=== PATIENT | female | born 1930 | race Caucasian/White ===

== ENCOUNTER → 2016-11-12 | Outpatient (CLI) | payer MEDICARE ==
[2014-12-07 00:05] VITALS: BP 196/96
[2016-11-12 12:16] LABS: BASO # 0.1 x10^3/uL (0.0-0.2); BASO % 1 % (0-3); EOS % 1 % (0-3); HEMATOCRIT 40.4 % (36.0-47.0); HEMOGLOBIN 13.4 g/dL (12.0-15.5); LYMPH # 1.5 x10^3/uL (1.0-4.8); LYMPH % 14 % (24-48); MEAN CORPUSCULAR HEMOGLOBIN 30 pg (25-35); MEAN CORPUSCULAR HGB CONC 33 g/dL (31-37); MEAN CORPUSCULAR VOLUME 91 fL (79-100); MONO % 7 % (0-9); NEUT % 78 % (31-73); PLATELET COUNT 254 x10^3/uL (140-400); RED BLOOD COUNT 4.45 x10^6/uL (3.50-5.40); RED CELL DISTRIBUTION WIDTH 14.4 % (11.5-14.5); WHITE BLOOD COUNT 10.4 x10^3/uL (4.0-11.0)
[2016-11-12 12:28] LABS: BILIRUBIN,URINE NEGATIVE (NEG); GLUCOSE,URINE NEGATIVE (NEG); NITRITE,URINE NEGATIVE (NEG); PH,URINE 5.5; PROTEIN,URINE NEGATIVE (NEG-TRACE); UROBILINOGEN,URINE 0.2 mg/dL (0.2 mg/dL)
[2016-11-12 12:31] LABS: ALBUMIN 3.7 g/dL (3.4-5.0); ALBUMIN/GLOBULIN RATIO 0.9 (1.0-1.7); CALCIUM 9.3 mg/dL (8.5-10.1); GFR 52.4; MAGNESIUM 1.9 mg/dL (1.8-2.4); PHOSPHORUS 3.8 mg/dL (2.6-4.7); POTASSIUM 3.5 mmol/L (3.5-5.1); TOTAL BILIRUBIN 0.4 mg/dL (0.2-1.0); TOTAL PROTEIN 7.9 g/dL (6.4-8.2); URIC ACID 7.3 mg/dL (2.6-6.0)
[2016-11-12 12:50] LABS: BACTERIA,URINE FEW /HPF (0-FEW); SQUAMOUS EPITHELIAL CELL,UR FEW /LPF
[2016-11-12 18:14] LABS: UR PROTEIN RD 24.4 mg/dL (Not Estab.)
[2016-11-13 17:20] LABS: VITAMIN D25(OH)TOTAL 33.6 ng/mL (30.0-100.0)
== END | disposition home or self-care (01) ==
LOC: LAB 11:43
PROVIDERS: ATTEND Internal Medicine Nephrology
DX: D35.02 Benign neoplasm of left adrenal gland (principal); I10 Essential (primary) hypertension; N28.1 Cyst of kidney, acquired; Z68.26 Body mass index [BMI] 26.0-26.9, adult
CPT/HCPCS: 36415; 80053; 81001; 82306; 82570; 83735; 84100; 84156; 84443; 84550; 85027; 87086

== ENCOUNTER → 2016-11-19 | Day surgery (SDC) | payer MEDICARE ==
[~2016-11-19] MED LIST: ALPR0.5T6 PO; ASPI-482 PO; CHOL200074 PO; HYDR25SU18 RC; HYDR25TA9 PO; HYDR28.311 RC; IV RINGERS,LACTATED 1000ML 1,000 ML IV SCH; LIDOCAINE 2% PF Vial for OR 5 ML VIAL. ONE; LISI10TA2 PO; PROPOFOL 40 ML IV ONE
[2016-11-19 09:53] VITALS: BP 129/76
--- NOTE | 2016-11-22 13:53 | PATHOLOGY ---
PATHOLOGY REPORT * * * * * * * * FINAL DIAGNOSIS: Esophageal biopsy, distal esophagus: - Segments of hyperplastic squamous esophageal mucosa, consistent with reflux esophagitis. COMMENT: Sections of the distal esophageal biopsy reveal segments of hyperplastic squamous esophageal mucosa showing focal chronic inflammation. The findings are consistent with reflux esophagitis. There is no evidence of Dias's, dysplasia or malignancy. (JPM:mml; 11/22/2016) REPORT ELECTRONICALLY SIGNED BY: Ignacio Esposito M.D. DATE/TIME: 11/22/2016 13:52 * * * * * * * * GROSS PATHOLOGY: Received in formalin labeled "Dorothy Altamirano, distal esophagus," are multiple segments of dsouza soft tissue measuring from 0.1 up to 0.3 cm in maximum dimension. The specimen is submitted entirely in cassette A1. (JPM; 11/19/16) INITIAL CPT CODE(S): A; 68808 Professional services performed [place] [address] Technical services performed by [facility] at [address] [place] [address]. SPECIMEN(S) RECEIVED: A.Distal esophagus biopsy CLINICAL HISTORY: Reflux PATIENT: DOROTHY ALTAMIRANO /AGE: 11 1930 (Age: 86) PATIENT #: [id number] ALT CASE #: SPECIMEN COLLECTION DATE: 11/19/2016 SPECIMEN RECEIVED DATE: 11/19/2016 [facility] - [address] [place] [address] - PHONE: [phone] * * * END OF REPORT * * *
== END | disposition home or self-care (01) ==
LOC: ENDOS 07:49
PROVIDERS: ATTEND Internal Medicine Gastroenterology
DX: K64.1 Second degree hemorrhoids (principal); K57.30 Diverticulosis of large intestine without perforation or abscess without bleeding; K21.0 Gastro-esophageal reflux disease with esophagitis; K44.9 Diaphragmatic hernia without obstruction or gangrene; K29.50 Unspecified chronic gastritis without bleeding; I10 Essential (primary) hypertension; K21.9 Gastro-esophageal reflux disease without esophagitis; M19.90 Unspecified osteoarthritis, unspecified site; F41.9 Anxiety disorder, unspecified; Z87.39 Personal history of other diseases of the musculoskeletal system and connective tissue
CPT/HCPCS: 43239; 45378; 88305; J2001; J2704

== ENCOUNTER → 2017-07-22 | Outpatient (CLI) | payer MEDICARE | END | disposition home or self-care (01) | LOC: KCIC MAMMO 12:07 | DX: Z12.31 Encounter for screening mammogram for malignant neoplasm of breast (principal) | CPT/HCPCS: 77063; 77067 ==

== ENCOUNTER → 2017-11-21 | Outpatient (CLI) | payer MEDICARE | END | disposition home or self-care (01) | LOC: KCIC 11:03 | DX: M47.896 Other spondylosis, lumbar region (principal); M48.061 Spinal stenosis, lumbar region without neurogenic claudication; M51.36 Other intervertebral disc degeneration, lumbar region; M12.88 Other specific arthropathies, not elsewhere classified, other specified site; I10 Essential (primary) hypertension; K21.0 Gastro-esophageal reflux disease with esophagitis | CPT/HCPCS: 72100 ==

== ENCOUNTER → 2017-11-28 | Outpatient (CLI) | payer MEDICARE | END | disposition home or self-care (01) | LOC: KCIC MRI 11:22 | DX: M47.896 Other spondylosis, lumbar region (principal); M48.061 Spinal stenosis, lumbar region without neurogenic claudication; M25.78 Osteophyte, vertebrae; M71.38 Other bursal cyst, other site; N28.1 Cyst of kidney, acquired; R53.1 Weakness | CPT/HCPCS: 72148 ==

== ENCOUNTER → 2018-01-05 | Outpatient (CLI) | payer MEDICARE ==
[2016-11-19 09:53] VITALS: BP 129/76
[~2018-01-05] MED LIST changes: +ACET500T68 PO; +IOHEXOL 180 MG/ML 10 ML VIAL. ONE; -IV RINGERS,LACTATED 1000ML 1,000 ML IV SCH; +LIDOCAINE 2% PF 2ML VIAL. ONE; -LIDOCAINE 2% PF Vial for OR 5 ML VIAL. ONE; -PROPOFOL 40 ML IV ONE; +methylPREDNISolone ACETATE 40 MG/ML VIAL. ONE; +methylPREDNISolone ACETATE 80 MG/ML VIAL. ONE
--- NOTE | 2018-01-05 22:54 | PAIN ---
DATE OF SERVICE: 01/05/2018 INITIAL CONSULTATION FOR PAIN CLINIC CHIEF COMPLAINT: Low back, bilateral lower extremities, left greater than right. HISTORY OF PRESENT ILLNESS: This is an 87-year-old female who presents with history of pain for about 1 year, worse over the past several months, increasing in the low back, bilateral lower extremities with some numbness and decreased strength in the lower extremities with fatigability. The patient reports it is across the low back into the bilateral lower extremities, mostly in lateral anterior aspect of the thigh, lateral medial thigh, posterior gluteus and posterior thigh as well as the posterior calf. The patient reports it is throbbing, changes during the day, worse with standing, walking, changing positions, cramping and numbness as well as her main complaint in the legs. The patient reports it does not awaken her from sleep at night. It does not affect her bowel or bladder control but does affect her ability to walk. She is not using any assistive devices currently. She has been holding on to items and hand rails, etc. The patient reports no loss of motor function with significant fatigability with exercise and activity. The patient did have MRI scan of the lumbar spine dated 11/28/2017 showing significant degenerative changes throughout the lumbar spine, most notable at L4-L5 with several levels of canal and foraminal compromise at L3-L4, L4-L5 and L5-S1. L4-L5 showing severe canal stenosis of the lateral recess narrowing bilaterally. L5-S1 shows moderate bilateral foraminal narrowing. L3-L4 showing mild left and minimal right neural foraminal narrowing. The patient rates her disability rate from 0-10, 10 being the worst, is a 5 with family home responsibilities, 7 with recreation and social activity, 0 with self care and 0 with life support activities. The patient has had physical therapy about 2 years ago and still doing stretching and strengthening exercises on her own that she learned with this and reports it does not decrease the pain significantly but was helpful about 2 years ago initially for the same pain. PAST MEDICAL HISTORY: Significant for hypertension, arthritis, hearing loss, hemorrhoids, cyst on the kidney and osteoarthritis. PAST SURGICAL HISTORY: Previous surgeries include carpal tunnel release on the right, cataract extraction bilaterally and a total knee in 2003. CURRENT MEDICATIONS: Include lisinopril, vitamin D, hydrochlorothiazide, alprazolam and baby aspirin. ALLERGIES: The patient is allergic to CHOLESTEROL MEDICINE, she is unsure of the name. FAMILY HISTORY: Significant for heart disease and cancer. SOCIAL HISTORY: The patient does not drink alcohol, does not smoke, does not use any illegal, illicit or recreational drugs. She is retired and lives locally in [place], [place]. REVIEW OF SYSTEMS: The patient's review of systems is positive for those items mentioned in history of present illness. All systems were reviewed and otherwise negative. It is complete, full and well documented on the patient's chart. PHYSICAL EXAMINATION: VITAL SIGNS: Today, the patient's blood pressure 124/83, pulse 87, respirations 16, temperature 97.9 degrees Fahrenheit, height is 4 feet 11 inches and weight 131 pounds. GENERAL: The patient is awake, alert, oriented, appropriate and very pleasant demeanor. HEENT: Head shows normocephalic and atraumatic. Extraocular movements intact and symmetrical. Oral cavity: Mucous membranes moist and pink. Dentition is intact. NECK: Anterior throat supple without palpable lymphadenopathy noted. Swallow reflex is symmetrical. CHEST: Shows normal with inspection. Breath sounds are clear to auscultation bilaterally. HEART: Shows S1 and S2 clear. No murmurs auscultated. ABDOMEN: Soft, nontender and nondistended. No palpable organomegaly is noted. No rebound or guarding demonstrated. BACK: Shows spine grossly in the midline. Slight exaggeration of the thoracic kyphosis, normal appearing cervical lordotic curvature and some slight flattening of the lumbar lordotic curvature. The patient's back shows paraspinous musculature of the lumbar distribution symmetrical on inspection with palpation shows some moderate tenderness but only diffusely bilaterally. The patient has good rotational motion both laterally greater than 10 degrees, right and left as well as extension greater than 10 degrees, forward flexion 45 degrees without difficulty or tenderness. No tenderness over the sacrum or sacroiliac regions. EXTREMITIES: Lower extremities show deep tendon reflexes at 1+ in the patellar and tendo-calcaneus tendons. Motor exam is approximately 4 on a scale of 5 on the left and 5/5 on the right with dorsiflexion, extension. Peripheral pulses are 1+ posterior tibia. No peripheral edema is noted. Straight leg raising noted to be negative for reproduction of radicular symptoms bilaterally. Gaenslen's and Uriel's maneuvers are grossly negative bilaterally as well. The patient is able to stand on her toes, walks with a normal appearing gait, does not require any assistive devices to ambulate and does not appear to favor the right or left lower extremity significantly with a short walk in the office today. The patient's skin shows warm and dry, good turgor. No edema. No sores, rashes or bruising. IMPRESSION: 1. This is an 87-year-old female with approximately 1 year history of increasing pain, bilateral lower extremities and low back, slightly worse on the left than the right in a radicular fashion. 2. MRI scan of the lumbar spine as noted. 3. Hypertension. 4. Arthritis. 5. Hearing loss. PLAN: Options were discussed with the patient including conservative medical management, physical therapy, interventional techniques and she would like to pursue interventional techniques. We discussed a lumbar epidural steroid injection using description as well as anatomical models to describe the procedure. Risks were then discussed including, but not limited to bleeding, infection, possibility of epidural hematoma, subsequent neurological compromise, dural puncture, headaches, spinal cord and/or nerve damage, side effects of steroid medication and poor results regarding pain control. The patient understands and wished to proceed. The patient will return to the clinic in approximately 2 weeks for followup, was counseled as to return appointment, activity level and side effects to be aware of. DIAGNOSES: Lumbar radiculopathy with lumbar degenerative disk disease and lumbar spinal stenosis. PROCEDURE: Lumbar epidural steroid injection, translaminar approach at L4-L5 level using C-arm fluoroscopic guidance under sterile prep and drape using local anesthetic. MEDICATION INJECTED: A total of 120 mg Depo-Medrol plus 10 mL of preservative-free normal saline and 2 mL of Isovue for contrast. CONDITION AT DISCHARGE: Stable. The patient tolerated the procedure well and had no complications. RIRI STUBBS MD DR: VINI/rafaela JOB#: [id number] / [id number] CESAR Howe MD
== END | disposition home or self-care (01) ==
LOC: PNCL 10:10
PROVIDERS: ATTEND Anesthesiology
DX: M51.16 Intervertebral disc disorders with radiculopathy, lumbar region (principal); M48.061 Spinal stenosis, lumbar region without neurogenic claudication; I10 Essential (primary) hypertension; M19.90 Unspecified osteoarthritis, unspecified site; H91.90 Unspecified hearing loss, unspecified ear; Z98.42 Cataract extraction status, left eye; Z98.41 Cataract extraction status, right eye; Z96.1 Presence of intraocular lens; Z98.890 Other specified postprocedural states; Z79.82 Long term (current) use of aspirin; Z79.899 Other long term (current) drug therapy; Z88.8 Allergy status to other drugs, medicaments and biological substances; Z82.49 Family history of ischemic heart disease and other diseases of the circulatory system; Z96.659 Presence of unspecified artificial knee joint
CPT/HCPCS: 62323; J1030; J1040; J2001; Q9965

== ENCOUNTER → 2018-01-23 | Outpatient (CLI) | payer MEDICARE ==
[2016-11-19 09:53] VITALS: BP 129/76
[~2018-01-23] MED LIST changes: -IOHEXOL 180 MG/ML 10 ML VIAL. ONE; -LIDOCAINE 2% PF 2ML VIAL. ONE; -methylPREDNISolone ACETATE 40 MG/ML VIAL. ONE; -methylPREDNISolone ACETATE 80 MG/ML VIAL. ONE
--- NOTE | 2018-01-23 14:31 | PAIN ---
DATE OF SERVICE: 01/23/2018 PROGRESS NOTE FOR PAIN CLINIC DIAGNOSES: Lumbar radiculopathy with lumbar degenerative disk disease and lumbar spinal stenosis. HISTORY OF PRESENT ILLNESS: The patient is an 87-year-old female who returns for followup status post lumbar epidural steroid injection x 1. The patient reports about 50% improvement and is still doing quite well. The patient had her injection on 01/05/2018 and reports she is doing quite well, helped the numbness as well in her legs and the legs are feeling much better. Still some pain in the low back, which bothers her now and but only occasionally. The patient increased her activity, greater activities, doing household activities and walking greater distances and the patient remains quite pleased with her progress thus far. The patient reports no new motor or sensory deficits and no new bowel or bladder incontinence. It does not awaken her from sleep at night. The patient reports the pain is 7 on a scale of 10 at its worst, 7 on average, 4 at its least and is a 4 today. The patient reports there is some tingling in the back and legs but much improved. The patient reports some aching and dull pain across the back but only occasionally and only with exertion or extended bending, flexing or standing. PHYSICAL EXAMINATION: VITAL SIGNS: The patient's blood pressure 149/82, pulse 79, respirations 20, temperature 97.9 degrees Fahrenheit, height is 4 feet 11 inches and weight is 134 pounds. GENERAL: The patient is awake, alert, oriented, appropriate and very pleasant demeanor. HEENT: Head shows normocephalic and atraumatic. Extraocular movements are intact and symmetrical. Oral cavity: Mucous membranes moist and pink. Dentition intact. NECK: Shows anterior throat supple without palpable lymphadenopathy noted. Swallow reflex is symmetrical. CHEST: Shows normal on inspection. Breath sounds clear to auscultation bilaterally. HEART: Shows S1 and S2 clear. No murmurs auscultated. ABDOMEN: Soft, nontender and nondistended. No palpable organomegaly is noted. No rebound or guarding demonstrated. BACK: Shows spine grossly in the midline. Normal appearing thoracic kyphosis and lumbar lordotic curvature. Lumbar paraspinous muscle shows symmetrical on inspection, on palpation shows some mild tenderness but only diffusely without radiation bilaterally. The patient shows good rotational motion both laterally as well as extension and flexion without difficulty as well. EXTREMITIES: Lower extremities show deep tendon reflexes 1+ in the patellar and tendo-calcaneus tendons. Motor exam is approximately 4 on a scale of 5 on the left and 5/5 on the right with dorsiflexion and extension but strong bilaterally. Peripheral pulses are 1+ posterior tibial. No peripheral edema is noted. Options were discussed with the patient. The patient's old chart was reviewed as well as her current medication regimen updated. Current review of systems updated today as well. We will hold on any further injections at this time as the patient is doing quite well. We would like to see how she does and we encouraged her to increase her activity as tolerated. Also, maintain stretching and strengthening exercises and walking as she is doing daily. The patient will follow up on as needed basis at this time. RIRI STUBBS MD DR: VINI/rafaela JOB#: [id number] / [id number]
== END | disposition home or self-care (01) ==
LOC: PNCL 11:34
PROVIDERS: ATTEND Anesthesiology
DX: M51.16 Intervertebral disc disorders with radiculopathy, lumbar region (principal); M48.061 Spinal stenosis, lumbar region without neurogenic claudication; K21.9 Gastro-esophageal reflux disease without esophagitis; Z87.39 Personal history of other diseases of the musculoskeletal system and connective tissue; Z88.8 Allergy status to other drugs, medicaments and biological substances; Z82.49 Family history of ischemic heart disease and other diseases of the circulatory system
CPT/HCPCS: G0463

== ENCOUNTER → 2018-07-17 | Outpatient (CLI) | payer MEDICARE ==
[2016-11-19 09:53] VITALS: BP 129/76
[~2018-07-17] MED LIST changes: +HYDR-2145 PO; -HYDR25TA9 PO
--- NOTE | 2018-07-17 19:25 | KCIC ---
Bilateral digital screening mammograms with 3-D tomosynthesis: Reason for examination: Routine screening. Comparison is made to previous studies dated 07/22/2017 and 01/01/2014. Bilateral mammograms in CC and oblique projections were obtained with 2-D imaging and 3-D tomosynthesis imaging on a Siemens Inspiration unit and reviewed on the workstation. Interpretation was made with the benefit of CAD. The skin and nipples show no abnormalities. No abnormal axillary lymph nodes are seen. The breast parenchyma shows scattered fatty and fibroglandular density. (Breast density: Category B.) There are no dominant masses, suspicious calcifications or architectural distortion. Benign calcifications are present. Impression: No evidence of malignancy. Recommend routine screening. BI-RAD Category 2: Benign. "Our facility is accredited by the [employer] Mammography Program." This patient's information has been entered into a reminder system for the patient to be notified with the results of her examination and a target date for the next mammogram. Electronically signed by: Jenny Zabala MD (07/17/2018 7:22 PM) [facility]
== END | disposition home or self-care (01) ==
LOC: KCIC MAMMO 13:54
PROVIDERS: ATTEND Family Medicine
DX: Z12.31 Encounter for screening mammogram for malignant neoplasm of breast (principal)
CPT/HCPCS: 77063; 77067

== ENCOUNTER → 2018-11-03 | Day surgery (SDC) | payer MEDICARE ==
[~2018-11-03] MED LIST changes: +HYDROmorphone 2 MG/ML VIAL IV PRN; +IV RINGERS,LACTATED 1000ML 1,000 ML IV SCH; +LIDOCAINE 1% PF 2 ML VIAL. ID PRN; +LIDOCAINE 2% PF 5 ML VIAL. ONE; +MORPHINE SULFATE 2 MG/ML VIAL. IV PRN; +ONDANSETRON PF 4 MG/2 ML VIAL. IV PRN; +PROCHLORPERAZINE 10 MG/2 ML VIAL. IV PRN; +PROPOFOL 20 ML IV ONE; +fentaNYL PF VIAL 100 MCG/2 ML VIAL IV PRN
[2018-11-03 08:10] VITALS: BP 96/55
--- NOTE | 2018-11-06 13:06 | PATHOLOGY ---
[facility] Accession Number: [id number] . 01 Material submitted: . esophagus - DISTAL ESOPHAGUS POLYP BIOPSY. Modifiers: distal . 01 Clinical history: . Dysphagia . 02 Diagnosis: Esophagus, distal, biopsy: - Polypoid portion of columnar epithelium with focal intestinal metaplasia, findings consistent with Dias's esophagus. - No evidence of dysplasia. - Mild chronic inflammation. (SKM:vishal; 11/06/2018) QMS/11/06/2018 . 02 Electronically signed: . Jah Kulkarni MD, Pathologist NPI- [id number] . 01 Gross description: . Received in formalin labeled "Onelia, , distal esophagus polyp BX," are 2 segments of dsouza soft tissue measuring 0.9 x 0.2 x 0.2 cm in aggregate dimensions and ranging from 0.4 to 0.5 cm in maximum dimension. The specimen is submitted entirely in cassette A1. (TSD; 11/03/2018) TOB/TOB . 02 Pathologist provided ICD-10: K22.70, K20.9 . 02 CPT . 569963 Specimen Comment: A courtesy copy of this report has been sent to Specimen Comment: [phone], . Specimen Comment: Report sent to / DR REID Performed at: 01 [facility] [address], [place] [id number] MD Tuan Worley MD Phone: [phone] Performed at: 02 [facility] [address], [place] [id number] MD Ignacio Esposito MD Phone: [phone]
== END ==
LOC: ENDOS 06:54
PROVIDERS: ATTEND Internal Medicine Gastroenterology
DX: K31.7 Polyp of stomach and duodenum (principal); K22.2 Esophageal obstruction
CPT/HCPCS: 43239; 43450; 88305; J2001; J2704

== ENCOUNTER 2019-01-25 11:04 | Emergency (ER) | payer MEDICARE ==
[~2019-01-25] VITALS: Ht 149.9 cm; Wt 56.7 kg
[2019-01-25 11:04] VITALS: BP 136/64
[~2019-01-25 11:04] MED LIST changes: -HYDROmorphone 2 MG/ML VIAL IV PRN; -IV RINGERS,LACTATED 1000ML 1,000 ML IV SCH; -LIDOCAINE 1% PF 2 ML VIAL. ID PRN; -LIDOCAINE 2% PF 5 ML VIAL. ONE; -MORPHINE SULFATE 2 MG/ML VIAL. IV PRN; -ONDANSETRON PF 4 MG/2 ML VIAL. IV PRN; -PROCHLORPERAZINE 10 MG/2 ML VIAL. IV PRN; -PROPOFOL 20 ML IV ONE; -fentaNYL PF VIAL 100 MCG/2 ML VIAL IV PRN
[2019-01-25] MEDS ORDERED: TETRACAINE 0.5% OPHTH SOLUTION 4ML BOTTLE. OU ONE (11:30)
[2019-01-25] MEDS ORDERED: FLUORESCEIN OPHTH TEST STRIP. OU ONE (11:30)
[2019-01-25 11:46] LABS: BILIRUBIN,URINE NEGATIVE (NEG); CLARITY,URINE CLEAR; COLOR,URINE YELLOW; NITRITE,URINE NEGATIVE (NEG); PROTEIN,URINE NEGATIVE (NEG-TRACE); UROBILINOGEN,URINE 0.2 mg/dL (0.2 mg/dL)
--- NOTE | 2019-01-25 11:49 | PHYS DOC ---
Past Medical History Past Medical History: High Cholesterol, Heart Disease, Hypertension Past Surgical History: Other Additional Past Surgical Histo: CARPAL, BILAT FOOT, bilateral cataracts Alcohol Use: None Drug Use: None Adult General Chief Complaint Chief Complaint: WEAKNESS/GENERALIZED HPI HPI Patient is an 88-year-old female who presents to the emergency department for evaluation. She states that she woke up in the middle of night last night with some left-sided eye pain, she felt that she might have scratched her eye. She states the pain persisted until this morning when it resolved. She states that when she awakened this morning she felt generally weak all over, but did not have any further pain. She states that she is feeling somewhat better at this point. She DENIES any pain at this time, denies any headache, ocular pain, vision changes, chest pain, abdominal pain, back pain, extremity pain or injury, nausea, or vomiting. She has chronic constipation but no change in her bowel habits. There are no alleviating or exacerbating factors to her symptoms. Review of Systems Review of Systems Constitutional: Denies fever or chills [] Eyes: Denies change in visual acuity, redness, or current eye pain [] HENT: Denies nasal congestion or sore throat [] Respiratory: Denies cough or shortness of breath [] Cardiovascular: The patient denies any shortness of breath, chest pain, palpitations, or orthopnea [] GI: Denies abdominal pain, nausea, vomiting, bloody stools or diarrhea [] : Denies dysuria or hematuria [] Musculoskeletal: Denies back pain or joint pain [] Integument: Denies rash or skin lesions [] Neurologic: Denies headache, focal weakness or sensory changes [] Endocrine: Denies polyuria or polydipsia [] All other systems were reviewed and found to be within normal limits, except as documented in this note. Current Medications Current Medications Current Medications Medications (Trade) Dose Ordered Sig/Maxwell Start Time Stop Time Status Last Admin Dose Admin Fluorescein Sodium (Ful-Dania) 1 strip 1X ONCE 01/25/19 11:30 01/25/19 11:33 DC 01/25/19 11:36 1 STRIP Tetracaine HCl (Tetracaine) 1 drop 1X ONCE 01/25/19 11:30 01/25/19 11:33 DC 01/25/19 11:36 1 DROP Allergies Allergies Allergies Coded Allergies Type Severity Reaction Last Updated Verified Xugjkhe-Mkv-Srw Reductase Inhibitor Allergy Unknown Rash 11/03/18 Yes Physical Exam Physical Exam PHYSICAL EXAM: CONSTITUTIONAL: Well developed, well nourished HEAD: normocephalic, atraumatic EENT: PERRL, EOMI. Conjunctivae appear mildly injected bilaterally, sclerae non- icteric; moist mucous membranes. Fluorescein exam is unremarkable bilaterally. Intraocular pressures are 17 on the left, 21 on the right, measured by Marino-Pen. NECK: Supple, non-tender; no meningismus. LUNGS: Lungs CTA, breathing even and unlabored. Normal air movement. HEART: Regular rate and rhythm, there is a systolic ejection murmur present. CHEST: No deformity; non-tender ABDOMEN: The abdomen is soft, and non-tender, no masses or bruits. EXTREM: Normal ROM; no deformity, no calf tenderness. Normal pulses palpable in all extremities. There is no pedal edema. SKIN: No rash; no diaphoresis NEURO: Alert; normal speech and cognition; CN's grossly intact; strength grossly intact without focal deficit. BACK: No CVA TTP. Current Patient Data Vital Signs Vital Signs Date Time Temp Pulse Resp B/P (MAP) Pulse Ox O2 Delivery O2 Flow Rate FiO2 01/25/19 11:04 97.8 100 20 136/64 (88) 96 Room Air 97.8 Lab Values Laboratory Tests Test 01/25/19 11:15 01/25/19 12:20 01/25/19 12:59 Urine Collection Type Unknown Urine Color Yellow Urine Clarity Clear Urine pH 5.0 Urine Specific [place] 1.020 Urine Protein Negative mg/dL (NEG-TRACE) Urine Glucose (UA) >=1000 mg/dL (NEG) Urine Ketones (Stick) Negative mg/dL (NEG) Urine Blood Negative (NEG) Urine Nitrite Negative (NEG) Urine Bilirubin Negative (NEG) Urine Urobilinogen Dipstick 0.2 mg/dL (0.2 mg/dL) Urine Leukocyte Esterase Negative (NEG) Urine RBC 0 /HPF (0-2) Urine WBC 1-4 /HPF (0-4) Urine Squamous Epithelial Cells Occ /LPF Urine Bacteria Few /HPF (0-FEW) Urine Hyaline Casts Moderate /HPF Urine Mucus Slight /LPF White Blood Count 8.8 x10^3/uL (4.0-11.0) Red Blood Count 4.25 x10^6/uL (3.50-5.40) Hemoglobin 13.0 g/dL (12.0-15.5) Hematocrit 38.9 % (36.0-47.0) Mean Corpuscular Volume 91 fL (79-100) Mean Corpuscular Hemoglobin 31 pg (25-35) Mean Corpuscular Hemoglobin Concent 34 g/dL (31-37) Red Cell Distribution Width 13.8 % (11.5-14.5) Platelet Count 245 x10^3/uL (140-400) Neutrophils (%) (Auto) 78 % (31-73) H Lymphocytes (%) (Auto) 12 % (24-48) L Monocytes (%) (Auto) 9 % (0-9) Eosinophils (%) (Auto) 1 % (0-3) Basophils (%) (Auto) 1 % (0-3) Neutrophils # (Auto) 6.9 x10^3/uL (1.8-7.7) Lymphocytes # (Auto) 1.0 x10^3/uL (1.0-4.8) Monocytes # (Auto) 0.8 x10^3/uL (0.0-1.1) Eosinophils # (Auto) 0.1 x10^3/uL (0.0-0.7) Basophils # (Auto) 0.0 x10^3/uL (0.0-0.2) Sodium Level 142 mmol/L (136-145) Potassium Level 3.5 mmol/L (3.5-5.1) Chloride Level 106 mmol/L (98-107) Carbon Dioxide Level 26 mmol/L (21-32) Anion Gap 10 (6-14) Blood Urea Nitrogen 18 mg/dL (7-20) Creatinine 0.9 mg/dL (0.6-1.0) Estimated GFR (Cockcroft-Gault) 59.0 BUN/Creatinine Ratio 20 (6-20) Glucose Level 115 mg/dL (70-99) H Calcium Level 9.1 mg/dL (8.5-10.1) Magnesium Level 1.8 mg/dL (1.8-2.4) Total Bilirubin 0.3 mg/dL (0.2-1.0) Aspartate Amino Transferase (AST) 17 U/L (15-37) Alanine Aminotransferase (ALT) 16 U/L (14-59) Alkaline Phosphatase 83 U/L (46-116) Troponin I Quantitative < 0.017 ng/mL (0.000-0.055) PR-Zdo-U-Type Natriuretic Peptide 381 pg/mL (0-449) Total Protein 7.0 g/dL (6.4-8.2) Albumin 3.1 g/dL (3.4-5.0) L Albumin/Globulin Ratio 0.8 (1.0-1.7) L Thyroid Stimulating Hormone (TSH) 0.835 uIU/mL (0.358-3.74) Free Thyroxine 1.03 ng/dL (0.76-1.46) Laboratory Tests 01/25/19 12:20 Laboratory Tests 01/25/19 12:59 EKG EKG Normal sinus rhythm at a rate of 80 bpm with occasional APCs, left axis deviation, normal intervals. Borderline left ventricular hypertrophy. There are no acute ischemic ST/T changes.[] Radiology/Procedures Radiology/Procedures [] Course & Med Decision Making Course & Med Decision Making Pertinent Labs and Imaging studies reviewed. (See chart for details) [] 1:40 PM: The patient's condition remains stable. She remains without complaint. Her vision is grossly normal for her, although she does not have her glasses for either distance of breathing, which does impair the testing of her visual acuity. I discussed the importance of close follow-up, and return precautions. Dragon Disclaimer Dragon Disclaimer This electronic medical record was generated, in whole or in part, using a voice recognition dictation system. Departure Departure Impression: Primary Impression: Weakness Additional Impression: Eye pain Disposition: HOME, SELF-CARE Condition: STABLE Referrals: CESAR REID MD (PCP) Patient Instructions: Weakness Additional Instructions: Contact your primary care provider as well as your photographic enlarger operator for further evaluation and treatment. Problem Qualifiers BOLIVAR AGRAWAL MD Jan 25, 2019 11:49
[2019-01-25 12:00] LABS: BACTERIA,URINE FEW /HPF (0-FEW); HYALINE CASTS, URINE MODERATE /HPF; RBC,URINE 0 /HPF (0-2); SQUAMOUS EPITHELIAL CELL,UR OCC /LPF
--- NOTE | 2019-01-25 12:31 | EKG ---
[facility] [address] [place] [address] Test Date: 2019-01-25 Test Time: 12:18:10 Pat Name: IRINEO ALTAMIRANO Department: Room: Gender: F Hotel Clerk: : [id number] Requested By: BOLIVAR AGRAWAL Order Number: [id number] Reading MD: Clive Field MD Measurements Intervals [place] Rate: 88 P: -65 NV: 152 QRS: -4 QRSD: 80 T: 54 QT: 380 QTc: 463 Interpretive Statements SR NON-SPECIFIC ST/T CHANGES Electronically Signed On 02-05-2019 14:37:04 CDT by Clive Field MD
[2019-01-25 12:37] LABS: BASO % 1 % (0-3); EOS # 0.1 x10^3/uL (0.0-0.7); EOS % 1 % (0-3); HEMATOCRIT 38.9 % (36.0-47.0); LYMPH % 12 % (24-48); MEAN CORPUSCULAR HEMOGLOBIN 31 pg (25-35); MEAN CORPUSCULAR HGB CONC 34 g/dL (31-37); MEAN CORPUSCULAR VOLUME 91 fL (79-100); MONO # 0.8 x10^3/uL (0.0-1.1); MONO % 9 % (0-9); NEUT # 6.9 x10^3/uL (1.8-7.7); NEUT % 78 % (31-73); PLATELET COUNT 245 x10^3/uL (140-400); RED BLOOD COUNT 4.25 x10^6/uL (3.50-5.40); RED CELL DISTRIBUTION WIDTH 13.8 % (11.5-14.5); WHITE BLOOD COUNT 8.8 x10^3/uL (4.0-11.0)
[2019-01-25 13:19] LABS: CALCIUM 9.1 mg/dL (8.5-10.1); CREATININE 0.9 mg/dL (0.6-1.0); POTASSIUM 3.5 mmol/L (3.5-5.1)
[2019-01-25 13:25] LABS: ALBUMIN 3.1 g/dL (3.4-5.0); ALBUMIN/GLOBULIN RATIO 0.8 (1.0-1.7); MAGNESIUM 1.8 mg/dL (1.8-2.4); TOTAL BILIRUBIN 0.3 mg/dL (0.2-1.0)
[2019-01-25 13:27] LABS: FREE T4 1.03 ng/dL (0.76-1.46); THYROID STIM HORMONE (TSH) 0.835 uIU/mL (0.358-3.74)
== END 2019-01-25 14:30 | disposition home or self-care (01) ==
LOC: ER 11:04
DX: H57.12 Ocular pain, left eye (principal); R53.1 Weakness; I11.9 Hypertensive heart disease without heart failure; E78.00 Pure hypercholesterolemia, unspecified; Z98.890 Other specified postprocedural states; Z91.041 Radiographic dye allergy status
CPT/HCPCS: 36415; 80053; 81001; 83735; 83880; 84439; 84443; 84484; 85025; 93005; 99285-25